=== PATIENT | female | born 1940 | race Two or more races ===

== ENCOUNTER 2023-02-28 14:34 | Outpatient (REF) | payer OTHER, SELFPAY | END 2023-02-28 14:35 | disposition home or self-care (01) | LOC: HO.SH 14:34 | PROVIDERS: Visit Provider Family Medicine | DX: Z01.118 Encounter for examination of ears and hearing with other abnormal findings (principal); H90.3 Sensorineural hearing loss, bilateral | CPT/HCPCS: 92557; 92567 ==